=== PATIENT | female | born 1985 | race African-American/Black ===

== ENCOUNTER 2017-01-19 07:54 | Inpatient (IN) | payer MEDICAID ==
[~2017-01-19] VITALS: Ht 162.6 cm; Wt 74.8 kg
[2017-01-19] MEDS ORDERED: SODIUM CHLORIDE 0.9% 1,000 ML IV ONE (08:33)
[2017-01-19] MEDS ORDERED: MORPHINE SULFATE 4 MG/ML CPJ (NOT FOR IM USE) IV STA (08:33)
[2017-01-19] MEDS ORDERED: ONDANSETRON HCL 4MG/2ML VIAL IV STA (08:33)
[2017-01-19 08:56] LABS: HEMOGLOBIN. 12.6 g/dL (12.0-16.0); MEAN CORPUSCULAR HEMOGLOBIN 32.5 pg (28.0-32.0); MEAN CORPUSCULAR VOLUME 97.9 fL (81.0-99.0); MEAN PLATELET VOLUME 8.5 fl (7.4-10.4); PLATELET 159 x1000/uL (130-400); RED BLOOD CELL COUNT 3.88 mill/uL (4.2-5.4); RED CELL DISTRIBUTION WIDTH 14.1 % (11.6-14.6)
[2017-01-19 08:59] LABS: CHLORIDE 104 mEq/L (98-107)
[2017-01-19 09:00] LABS: INR 1.2; PARTIAL THROMBOPLASTIN TIME 22.2 sec (24.0-34.0); PROTHROMBIN TIME 12.1 sec
[2017-01-19 09:07] LABS: CARBON DIOXIDE 24 mEq/L (21-32)
[2017-01-19] MEDS ORDERED: MORPHINE SULFATE 2 MG/ML CPJ (NOT FOR IM USE) IV PRN (11:30)
[2017-01-19] MEDS ORDERED: IPRATROPIUM/ALBUTEROL 0.5-3(2.5)MG/3ML NEB INH PRN (11:30)
[2017-01-19] MEDS ORDERED: DIPHENHYDRAMINE 50MG/ML VIAL IV PRN (11:30)
[2017-01-19] MEDS: SODIUM CHLORIDE 0.9% 1,000 ML IV SCH ×2 (11:39→22:00)
[2017-01-19] MEDS: ONDANSETRON HCL 4MG/2ML VIAL IV PRN ×2 (11:42→20:26)
[2017-01-19] MEDS: LORAZEPAM 2MG/ML CPJ IV PRN (11:42)
[2017-01-19 12:42] LABS: PLATELET ESTIMATE NORMAL
[2017-01-19] MEDS ORDERED: SODIUM CHLORIDE 0.9% 10ML VIAL ONE (13:41)
[2017-01-19] MEDS ORDERED: IOHEXOL-300 100 ML BOTTLE ONE (13:41)
[2017-01-19] MEDS ORDERED: CLONIDINE 0.1MG TABLET PO PRN (13:45)
[2017-01-19] MEDS ORDERED: LORAZEPAM 2MG/ML CPJ IV PRN (13:45)
[2017-01-19 14:41] LABS: HEPATITIS B SURFACE ANTIGEN NEGATIVE
[2017-01-19 14:44] LABS: CLARITY URINE CLEAR (CLEAR); COLOR URINE YELLOW (YELLOW); GLUCOSE URINE NEGATIVE (NEGATIVE); KETONES URINE 1+ (NEGATIVE); LEUKOCYTE ESTERASE URINE NEGATIVE (NEGATIVE); NITRITE URINE NEGATIVE (NEGATIVE); OCCULT BLOOD URINE NEGATIVE (NEGATIVE); PROTEIN URINE TRACE (NEGATIVE); SPECIFIC GRAVITY URINE 1.023 (1.005-1.030); UROBILINOGEN URINE 0.2 E.U./dL (0.2-1.0)
[2017-01-19 15:02] LABS: *AMPHETAMINES SCREEN URINE NEGATIVE (NEGATIVE); *BARBITURATES SCREEN URINE NEGATIVE (NEGATIVE); *BENZODIAZEPINES SCREEN URINE NEGATIVE (NEGATIVE); *COCAINE SCREEN URINE NEGATIVE (NEGATIVE); CANNABINOID URINE SCREEN NEGATIVE (NEGATIVE); METHADONE URINE SCREEN NEGATIVE (NEGATIVE); OPIATES URINE SCREEN NEGATIVE (NEGATIVE); PHENCYCLIDINE URINE SCREEN NEGATIVE (NEGATIVE)
[2017-01-19 15:09] LABS: HEPATITIS B CORE AB IGM NEGATIVE
[2017-01-19 15:11] LABS: HEPATITIS A AB IGM NEGATIVE (NEGATIVE)
[2017-01-19 16:15] VITALS: BP 132/77
[2017-01-19 20:00] VITALS: BP 143/88
[2017-01-19] MEDS: MORPHINE SULFATE 4 MG/ML CPJ (NOT FOR IM USE) IV PRN (20:27)
[2017-01-19] MEDS: CHLORDIAZEPOXIDE 25MG CAPSULE PO SCH (22:00)
[2017-01-20] VITALS: BP 121/88
[2017-01-20 04:00] VITALS: BP 111/70
[2017-01-20] MEDS: MORPHINE SULFATE 4 MG/ML CPJ (NOT FOR IM USE) IV PRN ×3 (04:08→21:09)
[2017-01-20 06:38] LABS: BASOPHILS % 0.2 % (0.0-2.0); EOSINOPHILS % 0.1 % (0.0-5.0); HEMATOCRIT. 41.3 % (36.0-48.0); HEMOGLOBIN. 13.9 g/dL (12.0-16.0); LYMPHOCYTES % 7.5 % (20.0-50.0); MEAN CORPUSCULAR HEMOGLOBIN 32.6 pg (28.0-32.0); MEAN CORPUSCULAR VOLUME 97.1 fL (81.0-99.0); MEAN PLATELET VOLUME 9.2 fl (7.4-10.4); MONOCYTES % 4.7 % (2.0-8.0); NEUTROPHILS % 87.5 % (40.0-76.0); PLATELET 125 x1000/uL (130-400); RED BLOOD CELL COUNT 4.26 mill/uL (4.2-5.4); RED CELL DISTRIBUTION WIDTH 13.9 % (11.6-14.6)
[2017-01-20] MEDS: CHLORDIAZEPOXIDE 25MG CAPSULE PO SCH ×3 (06:46→21:09)
[2017-01-20] MEDS: SODIUM CHLORIDE 0.9% 1,000 ML IV SCH ×2 (06:46→16:41)
[2017-01-20 07:48] LABS: CHLORIDE 99 mEq/L (98-107)
[2017-01-20 08:00] VITALS: BP 111/73
[2017-01-20 08:10] LABS: CARBON DIOXIDE 24 mEq/L (21-32); HDL CHOLESTEROL 73 mg/dL (40-59); LDL CHOLESTEROL 40 mg/dL (5-100)
[2017-01-20] MEDS: LORAZEPAM 2MG/ML CPJ IV PRN (09:44)
[2017-01-20 11:52] VITALS: BP 104/68
[2017-01-20] MEDS ORDERED: POTASSIUM CHLORIDE 20MEQ TABLET SR PO NR (15:00)
[2017-01-20 15:54] VITALS: BP 104/75
[2017-01-20 20:00] VITALS: BP 107/70
[2017-01-20] MEDS: HYDROCODONE/ACETAMINOPHEN 5/325MG TABLET PO PRN (22:51)
[2017-01-21] VITALS: BP 100/60
[2017-01-21] MEDS: SODIUM CHLORIDE 0.9% 1,000 ML IV SCH ×3 (00:59→23:16)
[2017-01-21 04:00] VITALS: BP 100/65
[2017-01-21] MEDS: CHLORDIAZEPOXIDE 25MG CAPSULE PO SCH ×3 (05:36→22:00)
[2017-01-21] MEDS: MORPHINE SULFATE 4 MG/ML CPJ (NOT FOR IM USE) IV PRN (05:41)
[2017-01-21 07:15] LABS: BASOPHILS % 0.1 % (0.0-2.0); EOSINOPHILS % 0.2 % (0.0-5.0); HEMATOCRIT. 37.8 % (36.0-48.0); HEMOGLOBIN. 12.8 g/dL (12.0-16.0); LYMPHOCYTES % 8.8 % (20.0-50.0); MEAN CORPUSCULAR HEMOGLOBIN 32.7 pg (28.0-32.0); MEAN PLATELET VOLUME 9.8 fl (7.4-10.4); MONOCYTES % 7.3 % (2.0-8.0); NEUTROPHILS % 83.6 % (40.0-76.0); PLATELET 127 x1000/uL (130-400); RED CELL DISTRIBUTION WIDTH 13.9 % (11.6-14.6)
[2017-01-21 07:27] LABS: CARBON DIOXIDE 29 mEq/L (21-32); CHLORIDE 104 mEq/L (98-107)
[2017-01-21 08:00] VITALS: BP 101/65
[2017-01-21] MEDS: HYDROCODONE/ACETAMINOPHEN 5/325MG TABLET PO PRN ×3 (09:02→21:51)
[2017-01-21 12:00] VITALS: BP 98/60
[2017-01-21 16:00] VITALS: BP 99/63
[2017-01-21] MEDS ORDERED: POTASSIUM CHLORIDE INJ 40 MEQ in DEXT 5% WATER 500 ML IV NR (16:00)
[2017-01-21] MEDS ORDERED: MAGNESIUM 2 G PREMIX 50 ML IV ONE (18:00)
[2017-01-21 20:00] VITALS: BP 99/66
[2017-01-21] MEDS: LORAZEPAM 2MG/ML CPJ IV PRN (23:57)
[2017-01-22 02:21] VITALS: BP 98/59
[2017-01-22 04:36] VITALS: BP 98/55
[2017-01-22] MEDS: HYDROCODONE/ACETAMINOPHEN 5/325MG TABLET PO PRN ×3 (05:17→20:02)
[2017-01-22] MEDS: CHLORDIAZEPOXIDE 25MG CAPSULE PO SCH ×3 (05:31→21:04)
[2017-01-22 07:31] VITALS: BP 87/49
[2017-01-22 07:49] LABS: CARBON DIOXIDE 29 mEq/L (21-32); CHLORIDE 100 mEq/L (98-107)
[2017-01-22 08:18] LABS: BASOPHILS % 0.3 % (0.0-2.0); HEMATOCRIT. 35.4 % (36.0-48.0); HEMOGLOBIN. 11.7 g/dL (12.0-16.0); MEAN CORPUSCULAR HEMOGLOBIN 32.4 pg (28.0-32.0); MEAN CORPUSCULAR VOLUME 97.7 fL (81.0-99.0); MEAN PLATELET VOLUME 9.5 fl (7.4-10.4); MONOCYTES % 9.5 % (2.0-8.0); NEUTROPHILS % 77.2 % (40.0-76.0); PLATELET 150 x1000/uL (130-400); RED BLOOD CELL COUNT 3.62 mill/uL (4.2-5.4)
[2017-01-22] MEDS ORDERED: POTASSIUM CHLORIDE 20MEQ TABLET SR PO SCH ×2 (09:00→13:00)
[2017-01-22] MEDS: SODIUM CHLORIDE 0.9% 1,000 ML IV SCH ×2 (09:39→20:50)
[2017-01-22 12:00] VITALS: BP 100/66
[2017-01-22 16:00] VITALS: BP 100/62
[2017-01-22 20:00] VITALS: BP 101/68
[2017-01-23] VITALS: BP 98/62
[2017-01-23] MEDS: HYDROCODONE/ACETAMINOPHEN 5/325MG TABLET PO PRN ×3 (02:20→22:15)
[2017-01-23 04:00] VITALS: BP 102/69
[2017-01-23] MEDS: CHLORDIAZEPOXIDE 25MG CAPSULE PO SCH ×3 (06:21→21:54)
[2017-01-23] MEDS: SODIUM CHLORIDE 0.9% 1,000 ML IV SCH ×2 (06:21→14:29)
[2017-01-23 07:42] LABS: CARBON DIOXIDE 26 mEq/L (21-32); CHLORIDE 105 mEq/L (98-107)
[2017-01-23 07:48] LABS: BASOPHILS % 0.2 % (0.0-2.0); EOSINOPHILS % 1.7 % (0.0-5.0); HEMOGLOBIN. 11.2 g/dL (12.0-16.0); LYMPHOCYTES % 16.6 % (20.0-50.0); MEAN CORPUSCULAR HEMOGLOBIN 32.6 pg (28.0-32.0); MEAN CORPUSCULAR VOLUME 98.6 fL (81.0-99.0); MEAN PLATELET VOLUME 8.5 fl (7.4-10.4); MONOCYTES % 12.5 % (2.0-8.0); PLATELET 211 x1000/uL (130-400); RED BLOOD CELL COUNT 3.45 mill/uL (4.2-5.4); RED CELL DISTRIBUTION WIDTH 13.9 % (11.6-14.6)
[2017-01-23 08:00] VITALS: BP 92/56
[2017-01-23 12:00] VITALS: BP 101/64
[2017-01-23 16:00] VITALS: BP 113/69
[2017-01-23 20:00] VITALS: BP 114/77
[2017-01-24] VITALS: BP 107/76
[2017-01-24] MEDS: SODIUM CHLORIDE 0.9% 1,000 ML IV SCH (01:02)
[2017-01-24 04:00] VITALS: BP 123/79
[2017-01-24] MEDS: CHLORDIAZEPOXIDE 25MG CAPSULE PO SCH (05:01)
[2017-01-24 06:05] LABS: BASOPHILS % 0.4 % (0.0-2.0); HEMATOCRIT. 39.6 % (36.0-48.0); HEMOGLOBIN. 13.1 g/dL (12.0-16.0); LYMPHOCYTES % 16.8 % (20.0-50.0); MEAN CORPUSCULAR HEMOGLOBIN 32.4 pg (28.0-32.0); MEAN CORPUSCULAR VOLUME 98.5 fL (81.0-99.0); MEAN PLATELET VOLUME 9.1 fl (7.4-10.4); MONOCYTES % 10.9 % (2.0-8.0); NEUTROPHILS % 69.9 % (40.0-76.0); PLATELET 221 x1000/uL (130-400); RED BLOOD CELL COUNT 4.02 mill/uL (4.2-5.4); RED CELL DISTRIBUTION WIDTH 13.9 % (11.6-14.6)
[2017-01-24 06:13] LABS: CARBON DIOXIDE 24 mEq/L (21-32); CHLORIDE 105 mEq/L (98-107)
[2017-01-24 07:29] VITALS: BP 114/74
[2017-01-24 08:00] VITALS: BP 114/74
== END 2017-01-24 15:50 | disposition home or self-care (01) | DRG 282 ==
LOC: ER 08:12 → 8WST 10:28 → ENRESERV 15:01
PROVIDERS: ADMIT Internal Medicine; ATTEND Internal Medicine
DX: K85.90 Acute pancreatitis without necrosis or infection, unspecified (principal); E44.1 Mild protein-calorie malnutrition; I10 Essential (primary) hypertension; F10.21 Alcohol dependence, in remission; E87.6 Hypokalemia; Z79.899 Other long term (current) drug therapy; Z88.8 Allergy status to other drugs, medicaments and biological substances; Z71.41 Alcohol abuse counseling and surveillance of alcoholic; Z68.28 Body mass index [BMI] 28.0-28.9, adult
CPT/HCPCS: 36415; 71010; 74177; 76705; 80048; 80053; 80061; 80305; 81001; 83690; 83735; 85025; 85610; 85730; 86705; 86709; 86803; 86850; 86900; 87040; 87086; 87340; 93005; 96361; 96374; 96375; 96376; 99285; A4216; C1893; J2060; J2270; J2405; J3475; J3480; J7030; J7060; Q9967

== ENCOUNTER 2024-03-25 12:34 | Emergency (ER) | payer MEDICAID ==
[~2024-03-25] VITALS: Ht 172.7 cm; Wt 64.0 kg
[2024-03-25 12:44] VITALS: BP 95/65; PULSE 63; RESP 16; TEMP 98.4; O2SAT 97
== END 2024-03-25 18:36 | disposition home or self-care (01) ==
LOC: ER 12:34
DX: R06.02 Shortness of breath (principal); Z98.890 Other specified postprocedural states; Z88.8 Allergy status to other drugs, medicaments and biological substances
CPT/HCPCS: 71045; 99283